=== PATIENT | female | born 1940 | race Caucasian/White ===

== ENCOUNTER 2016-05-24 06:27 | Observation (INO) | payer OTHER ==
[~2016-05-24] VITALS: Ht 167.6 cm; Wt 105.4 kg
--- NOTE | 2016-05-24 06:54 | EMERGENCY ROOM VISIT NOTE ---
History Report prepared by Cory: Huseyin Botello Under the Supervision of: Dr. Angelique Dong M.D. First contact with patient: 06:43 Chief Complaint: CHEST PAIN Stated Complaint: CHEST TIGHTNESS,NUMB AROUND MOUTH,HEADPAIN,SOB History of Present Illness The patient is a 75 year old female with a history of renal failure who presents to the Emergency Room with complaints of resolved chest pain that persisted throughout last night. The pain was described as "feeling like her chest is caving in." The patient called her daughter in the morning at approximately 0430 complaining of chest pain and leg pain/swelling. The patient was not able to sleep last night secondary to pain. The patient also complains of numbness of her lips and tongue. The patient does not have any numbness of her fingertips. The patient has never had a heart attack. She had a catheterization many years ago. The patient has a history of diabetes. She is not a smoker. Source of History: patient, family (daughter) Onset: last night Position: chest Quality: other ("caving in") Timing: resolved Associated Symptoms: + numbness Review of Systems See HPI for pertinent positives & negatives. A total of 10 systems reviewed and were otherwise negative. Past Medical & Surgical Medical Problems: (1) MANUEL (acute kidney injury) (2) Chest pain (3) Diabetes Family History Patient reports no known family medical history. Social History Smoking Status: Never Smoker Marital Status: Occupation Status: retired Current/Historical Medications Scheduled Amlodipine (Norvasc), 10 MG PO DAILY Aspirin (Aspirin Ec), 325 MG PO Q2D Furosemide (Lasix), 80 MG PO BID Hydralazine HCl (Hydralazine HCl), 100 MG PO BID Insulin Aspart (Novolog), 28 UNITS SC TIDM Insulin Glargine (Lantus), 50 UNITS SC HS Levothyroxine Sodium (Synthroid), 100 MCG PO DAILY Losartan Potassium (Cozaar), 100 MG PO DAILY Magnesium Oxide (Magnesium), 400 MG PO DAILY Metoprolol Tartrate (Lopressor) (Lopressor), 100 MG PO DAILY Ranitidine Hcl (Zantac), 150 MG PO BID Allergies Coded Allergies: No Known Allergies (Unverified , 05/24/16) Physical Exam Vital Signs Date Time Temp Pulse Resp B/P Pulse Ox O2 Delivery O2 Flow Rate FiO2 05/24/16 10:07 57 05/24/16 09:05 76 20 188/143 92 Room Air 05/24/16 06:52 78 05/24/16 06:33 36.8 76 16 183/78 95 Room Air Physical Exam Vital signs reviewed. General: Obese, chronically ill-appearing female, in no significant distress. HEENT: No scleral icterus, PERRLA, neck supple. Atraumatic. Cardiovascular: Regular rate and rhythm, no extra sounds. Pulmonary: Clear to auscultation bilaterally, normal work of breathing. Abdomen: Abdomen is obese, soft, and nontender. Musculoskeletal: Atraumatic. Nonpitting peripheral edema to the bilateral lower extremities. Neurologic: Patient awake alert and oriented x 3, full strength in all 4 extremities. Cranial nerves 2 through 12 grossly intact. Skin: Warm, dry, no rash Medical Decision & Procedures ER Provider Diagnostic Interpretation: X-ray results as stated below per my interpretation and radiologist interpretation. Other radiology results as stated below per my review and radiologist interpretation: SINGLE VIEW CHEST CLINICAL HISTORY: Atypical chest pain. Dyspnea. FINDINGS: An AP, portable, upright chest radiograph is obtained. No prior studies are available for comparison at the time of dictation. The examination is degraded by portable technique, large body habitus, apical positioning, and patient rotation. The heart is enlarged and there is atherosclerotic calcification of the thoracic aorta. The pulmonary vasculature is noncongested. Linear atelectasis is present in the left lower lung. No airspace consolidation or large pleural effusion is seen. There is no pneumothorax. The skeletal structures are osteopenic. The bony thorax is grossly intact. IMPRESSION: Cardiomegaly with no acute cardiopulmonary abnormality. Electronically signed by: Franko Leong M.D. 05/24/2016 7:17 AM Dictated Date/Time: 05/24/2016 7:16 AM BILATERAL LOWER EXTREMITY VENOUS DOPPLER CLINICAL HISTORY: Bilateral lower extremity swelling. COMPARISON STUDY: No previous studies for comparison. TECHNIQUE: Sonography of the deep venous system of the bilateral lower extremities was performed. Compression and augmentation were evaluated. FINDINGS: The common femoral, superficial femoral and popliteal veins were compressible. Augmentation was normal. Flow was shown within the deep calf vessels. Note is made of a 6 x 1.5 x 2.8 cm complex right popliteal fluid collection. There is a 7.7 x 2.3 x 3.6 cm complex left popliteal fluid collection. These contain no color flow. IMPRESSION: 1. No evidence of deep venous thrombus within the bilateral lower extremities. 2. Suspected bilateral popliteal cysts, as described above. Electronically signed by: Kane Rodriguez M.D. 05/24/2016 9:45 AM Dictated Date/Time: 05/24/2016 9:44 AM Laboratory Results 05/24/16 07:20 Red Blood Count 4.04, Mean Corpuscular Volume 85.1, Mean Corpuscular Hemoglobin 28.2, Mean Corpuscular Hemoglobin Concent 33.1, Mean Platelet Volume 11.7, Neutrophils (%) (Auto) 58.9, Lymphocytes (%) (Auto) 32.4, Monocytes (%) (Auto) 7.2, Eosinophils (%) (Auto) 1.1, Basophils (%) (Auto) 0.2, Neutrophils # (Auto) 2.63, Lymphocytes # (Auto) 1.45, Monocytes # (Auto) 0.32, Eosinophils # (Auto) 0.05, Basophils # (Auto) 0.01 05/24/16 07:20 Test 05/24/16 07:20 05/24/16 07:28 White Blood Count 4.47 K/uL (4.8-10.8) Red Blood Count 4.04 M/uL (4.2-5.4) Hemoglobin 11.4 g/dL (12.0-16.0) Hematocrit 34.4 % (37-47) Mean Corpuscular Volume 85.1 fL (80-100) Mean Corpuscular Hemoglobin 28.2 pg (25-34) Mean Corpuscular Hemoglobin Concent 33.1 g/dl (32-36) Platelet Count 181 K/uL (130-400) Mean Platelet Volume 11.7 fL (7.4-10.4) Neutrophils (%) (Auto) 58.9 % Lymphocytes (%) (Auto) 32.4 % Monocytes (%) (Auto) 7.2 % Eosinophils (%) (Auto) 1.1 % Basophils (%) (Auto) 0.2 % Neutrophils # (Auto) 2.63 K/uL (1.4-6.5) Lymphocytes # (Auto) 1.45 K/uL (1.2-3.4) Monocytes # (Auto) 0.32 K/uL (0.11-0.59) Eosinophils # (Auto) 0.05 K/uL (0-0.5) Basophils # (Auto) 0.01 K/uL (0-0.2) RDW Standard Deviation 45.7 fL (36.4-46.3) RDW Coefficient of Variation 14.6 % (11.5-14.5) Immature Granulocyte % (Auto) 0.2 % Immature Granulocyte # (Auto) 0.01 K/uL (0.00-0.02) Anion Gap 11.0 mmol/L (3-11) Est Creatinine Clear Calc Drug Dose 20.9 ml/min Estimated GFR () 18.3 Estimated GFR (Non- 15.7 BUN/Creatinine Ratio 10.5 (10-20) Calcium Level 9.2 mg/dl (8.5-10.1) Magnesium Level 2.3 mg/dl (1.8-2.4) Total Bilirubin 0.4 mg/dl (0.2-1) Direct Bilirubin 0.1 mg/dl (0-0.2) Aspartate Amino Transf (AST/SGOT) 12 U/L (15-37) Alanine Aminotransferase (ALT/SGPT) 16 U/L (12-78) Alkaline Phosphatase 86 U/L (45-117) Total Creatine Kinase 66 U/L (26-192) Creatine Kinase MB 0.8 ng/ml (0.5-3.6) Creatine Kinase MB Ratio 1.2 (0-3.0) Total Protein 6.9 gm/dl (6.4-8.2) Albumin 2.9 gm/dl (3.4-5.0) Beta-Hydroxybutyric Acid 2.35 mg/dL (0.2-2.81) Bedside D-Dimer > 450 ng/mlFEU (0-450) Bedside Troponin I 0.000 ng/ml (0-0.045) Laboratory results per my review. Medications Administered Medications (Trade) Dose Ordered Sig/Moiz Route Start Time Stop Time Status Last Admin Dose Admin Aspirin (Aspirin Chew) 324 mg NOW STAT PO 05/24/16 06:59 05/24/16 07:02 DC 05/24/16 07:17 324 MG ECG Indication: chest pain Rate (beats per minute): 78 Rhythm: normal sinus Findings: no acute ischemic change, no ectopy, other (T wave flattening inferiorly.) ED Course 0644: Past medical records reviewed. The patient was evaluated in room A9b. A complete history and physical examination was performed. 0659: Aspirin 324 mg PO. 0850: Checked on the patient. She is stable. 0946: Discussed the case with Vanessa Ridley PA-C, [facility]. The patient will be evaluated. Medical Decision Differential diagnosis: Acute coronary syndrome, pulmonary embolus, aortic dissection, musculoskeletal pain, pneumonia, pleural effusion, pneumothorax This patient was evaluated and appeared to be in no significant distress. IV access was obtained and laboratory work was drawn. The patient was placed on the diagnostic cardiac sonographer and found to be in a normal sinus rhythm. EKG was performed and reveals T-wave flattening in the inferior. Laboratory work reveals a normal troponin, normal cardiac enzymes. Patient was given aspirin to chew. She had no further pain while in the emergency department. Patient was discussed with the hospitalist service who will evaluate the patient for further management. Consults Time Called: [phone] Consulting Physician: Vanessa Ridley PA-C, [facility]. Returned Call: [phone]: Discussed the case with Vanessa Ridley PA-C, [facility]. The patient will be evaluated. Impression Primary Impression: Precordial chest pain Additional Impression: Acute on chronic renal failure Scribe Attestation The scribe's documentation has been prepared under my direction and personally reviewed by me in its entirety. I confirm that the note above accurately reflects all work, treatment, procedures, and medical decision making performed by me. Departure Information Dispostion Being Evaluated By Hospitalist Referrals Carmine Moyer D.O. (PCP) Patient Instructions My [facility] Problem Qualifiers
[2016-05-24] MEDS ORDERED: ASPIRIN 81 MG CHEW PO STA (06:59)
--- NOTE | 2016-05-24 07:18 | DIAGNOSTIC IMAGING REPORT ---
SINGLE VIEW CHEST CLINICAL HISTORY: Atypical chest pain. Dyspnea. FINDINGS: An AP, portable, upright chest radiograph is obtained. No prior studies are available for comparison at the time of dictation. The examination is degraded by portable technique, large body habitus, apical positioning, and patient rotation. The heart is enlarged and there is atherosclerotic calcification of the thoracic aorta. The pulmonary vasculature is noncongested. Linear atelectasis is present in the left lower lung. No airspace consolidation or large pleural effusion is seen. There is no pneumothorax. The skeletal structures are osteopenic. The bony thorax is grossly intact. IMPRESSION: Cardiomegaly with no acute cardiopulmonary abnormality. Electronically signed by: Franko Leong M.D. 05/24/2016 7:17 AM Dictated Date/Time: 05/24/2016 7:16 AM
[2016-05-24 07:34] LABS: BASO % 0.2 %; BASO ABS # 0.01 K/uL (0-0.2); COMPLETE YES; EOS % 1.1 %; HEMATOCRIT 34.4 % (37-47); IG% 0.2 %; LYMPH % 32.4 %; LYMPH ABS # 1.45 K/uL (1.2-3.4); MEAN CELL VOLUME 85.1 fL (80-100); MEAN CORPUSCULAR HEMOGLOBIN 28.2 pg (25-34); MEAN CORPUSCULAR HGB CONC 33.1 g/dl (32-36); MEAN PLATELET VOLUME 11.7 fL (7.4-10.4); MONO % 7.2 %; NEUT % 58.9 %; PLATELET COUNT 181 K/uL (130-400); RED BLOOD COUNT 4.04 M/uL (4.2-5.4); WHITE BLOOD COUNT 4.47 K/uL (4.8-10.8)
[2016-05-24] MEDS ORDERED: INSDGI SC (07:46)
[2016-05-24] MEDS ORDERED: MAGN1TAB41 PO (07:46)
[2016-05-24] MEDS ORDERED: LOSA1TAB38 PO (07:46)
[2016-05-24] MEDS ORDERED: FURO80TA63 PO (07:46)
[2016-05-24] MEDS ORDERED: NVLG SC (07:46)
[2016-05-24] MEDS ORDERED: HYDR100T3 PO ×2 (07:46→10:44)
[2016-05-24] MEDS ORDERED: METO100T14 PO (07:46)
[2016-05-24] MEDS ORDERED: AMLO2.5T PO (07:46)
[2016-05-24] MEDS ORDERED: LEVO100T PO (07:46)
[2016-05-24 07:53] LABS: BUN/CREATININE RATIO 10.5 (10-20); CALCIUM 9.2 mg/dl (8.5-10.1); CREATININE 2.8 mg/dl (0.60-1.20); MAGNESIUM 2.3 mg/dl (1.8-2.4); POTASSIUM 3.6 mmol/L (3.5-5.1)
[2016-05-24 08:03] LABS: BETA-HYDROXYBUTYRATE 2.35 mg/dL (0.2-2.81); CKMB/CK RATIO 1.2 (0-3.0)
--- NOTE | 2016-05-24 09:46 | DIAGNOSTIC IMAGING REPORT ---
BILATERAL LOWER EXTREMITY VENOUS DOPPLER CLINICAL HISTORY: Bilateral lower extremity swelling. COMPARISON STUDY: No previous studies for comparison. TECHNIQUE: Sonography of the deep venous system of the bilateral lower extremities was performed. Compression and augmentation were evaluated. FINDINGS: The common femoral, superficial femoral and popliteal veins were compressible. Augmentation was normal. Flow was shown within the deep calf vessels. Note is made of a 6 x 1.5 x 2.8 cm complex right popliteal fluid collection. There is a 7.7 x 2.3 x 3.6 cm complex left popliteal fluid collection. These contain no color flow. IMPRESSION: 1. No evidence of deep venous thrombus within the bilateral lower extremities. 2. Suspected bilateral popliteal cysts, as described above. Electronically signed by: Kane Rodriguez M.D. 05/24/2016 9:45 AM Dictated Date/Time: 05/24/2016 9:44 AM
[2016-05-24] MEDS ORDERED: ASPI325T39 PO (10:44)
[2016-05-24] MEDS ORDERED: AMLO-114 PO (10:44)
[2016-05-24] MEDS ORDERED: RANI150T3 PO (10:44)
[2016-05-24] MEDS ORDERED: GLUCOSE 10 TABS/TUBE PO PRN (10:45)
[2016-05-24] MEDS ORDERED: GLUCAGON FOR INJ 1 MG VIAL SQ PRN (10:45)
[2016-05-24] MEDS ORDERED: ACETAMINOPHEN 325 MG TAB PO PRN (10:45)
[2016-05-24] MEDS ORDERED: DEXTROSE 50% 50 ML SYR IV PRN (10:45)
[2016-05-24] MEDS ORDERED: GLUCOSE 40% GEL 15 GM TUBE PO PRN (10:45)
[2016-05-24] MEDS ORDERED: NITROGLYCERIN 0.4 MG SL PER TAB CHARGE SL PRN (10:45)
[2016-05-24] MEDS ORDERED: ONDANSETRON INJ 2 MG/ML 2 ML VIAL IV PRN (10:45)
--- NOTE | 2016-05-24 12:22 | History and Physical ---
History & Physical Date & Time of Service: May 24, 2016 at 12:04 Chief Complaint: Chest Tightness,Numb Around Mouth,Head Pain,Sob Primary Care Physician: Carmine Moyer D.O. History of Present Illness Source: patient This is a 75 y/o female with PMHx of CKD stage 4, Diastolic CHF on lasix, insulin-dependent DM 2, Hypothyroidism, HTN, Dyslipidemia and other problems as outlined below who presents to the ED c/o chest pain that began last night. Pt reports that last night she awoke from sleep with a dull central chest "heaviness" that did not radiate anywhere. The pain lasted approximately 2 hours before resolving completely. She does not know if her sxs were made worse with exertion. Sxs were assoc with exertional SOB and some lip numbness. She also noticed worsening LE edema bilaterally. She has never had chest pain like that before. Pt denies fever/chills, diaphoresis, palpitations, wheezing, abd pain, N/V, bladder issues, calf pain, slurred speech, facial droop, unilateral weakness, difficulty with swallowing or ambulation, lightheadedness/dizziness. In the ED, BP is elevated on arrival. Creat 2.8. d-dimer >450. Trop neg and EKG no acute ischemic changes. CXR no consolidation. Bilat LE US negative for DVT. Pt is currently chest pain free and will be admitted for further evaluation and treatment. Past Medical/Surgical History Medical Problems: (1) CKD (chronic kidney disease) stage 4, GFR 15-29 ml/min Status: Chronic (2) Diabetes mellitus, type II Status: Chronic (3) Diastolic heart failure Status: Chronic (4) Dyslipidemia Status: Chronic (5) GERD (gastroesophageal reflux disease) Status: Chronic (6) HTN (hypertension) Status: Chronic (7) Hypothyroidism Status: Chronic Surgical Problems: (1) H/O cataract removal with insertion of prosthetic lens Status: Resolved (2) H/O hernia repair Permanent Comment: x3 Status: Resolved (3) History of total hysterectomy Status: Resolved (4) History of tubal ligation Status: Resolved Family History Patient reports no known family medical history. Social History Smoking Status: Never Smoker Alcohol Use: none Drug Use: none Marital Status: single Housing status: lives alone Occupational Status: retired Allergies Coded Allergies: No Known Allergies (Unverified , 05/24/16) Home Medications Scheduled Amlodipine (Norvasc), 10 MG PO DAILY Aspirin (Aspirin Ec), 325 MG PO Q2D Furosemide (Lasix), 80 MG PO BID Hydralazine HCl (Hydralazine HCl), 100 MG PO BID Insulin Aspart (Novolog), 28 UNITS SC TIDM Insulin Glargine (Lantus), 50 UNITS SC HS Levothyroxine Sodium (Synthroid), 100 MCG PO DAILY Losartan Potassium (Cozaar), 100 MG PO DAILY Magnesium Oxide (Magnesium), 400 MG PO DAILY Metoprolol Tartrate (Lopressor) (Lopressor), 100 MG PO DAILY Ranitidine Hcl (Zantac), 150 MG PO BID Review of Systems Constitutional: No chills, No fatigue, No fever, No sweats, No weakness Eyes: No worsening of vision ENT: No hearing loss Respiratory: + cough, + dyspnea on exertion, + shortness of breath, No dyspnea at rest, No sputum, No wheezing Cardiovascular: + chest pain, + edema, No claudication, No palpitations Abdomen: + constipation, No GI bleeding, No diarrhea, No nausea, No pain, No vomiting Musculoskeletal: + swelling, No calf pain Genitourinary - Female: No dysuria Neurologic: No weakness Psychiatric: No depression symptoms Endocrine: No fatigue Hematologic / Lymphatic: No abnormal bleeding/bruising Integumentary: No new/changing skin lesions Physical Exam Vital Signs Date Time Temp Pulse Resp B/P Pulse Ox O2 Delivery O2 Flow Rate FiO2 05/24/16 11:12 53 16 151/65 05/24/16 10:07 53 18 149/63 05/24/16 10:07 57 05/24/16 09:05 76 20 188/143 92 Room Air 05/24/16 06:52 78 05/24/16 06:33 36.8 76 16 183/78 95 Room Air General Appearance: WD/WN, no apparent distress, + obese, + pertinent finding ( Pt is sitting up in bed with daughters at bedside ) Head: normocephalic, atraumatic Eyes: normal inspection ENT: hearing grossly normal Neck: supple Respiratory/Chest: chest non-tender, no respiratory distress, + pertinent finding (rhonchi and mild wheezing) Cardiovascular: regular rate, rhythm, no edema, no murmur Abdomen/GI: normal bowel sounds, non tender, soft Back: normal inspection Extremities/Musculoskelatal: normal inspection, no calf tenderness, + swelling (1+ swelling bilat) Neurologic/Psych: pocket cutter II-XII nml as tested, no motor/sensory deficits, alert, normal mood/affect, oriented x 3 Skin: normal color, warm/dry Diagnostics Laboratory Results Results Past 24 Hours Test 05/24/16 07:20 05/24/16 07:28 Range/Units White Blood Count 4.47 4.8-10.8 K/uL Red Blood Count 4.04 4.2-5.4 M/uL Hemoglobin 11.4 12.0-16.0 g/dL Hematocrit 34.4 37-47 % Mean Corpuscular Volume 85.1 80-100 fL Mean Corpuscular Hemoglobin 28.2 25-34 pg Mean Corpuscular Hemoglobin Concent 33.1 32-36 g/dl Platelet Count 181 130-400 K/uL Mean Platelet Volume 11.7 7.4-10.4 fL Neutrophils (%) (Auto) 58.9 % Lymphocytes (%) (Auto) 32.4 % Monocytes (%) (Auto) 7.2 % Eosinophils (%) (Auto) 1.1 % Basophils (%) (Auto) 0.2 % Neutrophils # (Auto) 2.63 1.4-6.5 K/uL Lymphocytes # (Auto) 1.45 1.2-3.4 K/uL Monocytes # (Auto) 0.32 0.11-0.59 K/uL Eosinophils # (Auto) 0.05 0-0.5 K/uL Basophils # (Auto) 0.01 0-0.2 K/uL RDW Standard Deviation 45.7 36.4-46.3 fL RDW Coefficient of Variation 14.6 11.5-14.5 % Immature Granulocyte % (Auto) 0.2 % Immature Granulocyte # (Auto) 0.01 0.00-0.02 K/uL Sodium Level 134 136-145 mmol/L Potassium Level 3.6 3.5-5.1 mmol/L Chloride Level 97 98-107 mmol/L Carbon Dioxide Level 26 21-32 mmol/L Anion Gap 11.0 3-11 mmol/L Blood Urea Nitrogen 29 7-18 mg/dl Creatinine 2.80 0.60-1.20 mg/dl Est Creatinine Clear Calc Drug Dose 20.9 ml/min Estimated GFR () 18.3 Estimated GFR (Non- 15.7 BUN/Creatinine Ratio 10.5 10-20 Random Glucose 327 70-99 mg/dl Calcium Level 9.2 8.5-10.1 mg/dl Magnesium Level 2.3 1.8-2.4 mg/dl Total Bilirubin 0.4 0.2-1 mg/dl Direct Bilirubin 0.1 0-0.2 mg/dl Aspartate Amino Transf (AST/SGOT) 12 15-37 U/L Alanine Aminotransferase (ALT/SGPT) 16 12-78 U/L Alkaline Phosphatase 86 45-117 U/L Total Creatine Kinase 66 26-192 U/L Creatine Kinase MB 0.8 0.5-3.6 ng/ml Creatine Kinase MB Ratio 1.2 0-3.0 Total Protein 6.9 6.4-8.2 gm/dl Albumin 2.9 3.4-5.0 gm/dl Beta-Hydroxybutyric Acid 2.35 0.2-2.81 mg/dL Bedside D-Dimer > 450 0-450 ng/mlFEU Bedside Troponin I 0.000 0-0.045 ng/ml Diagnostic Radiology BILAT LE US IMPRESSION: 1. No evidence of deep venous thrombus within the bilateral lower extremities. 2. Suspected bilateral popliteal cysts, as described above CXR IMPRESSION: Cardiomegaly with no acute cardiopulmonary abnormality. EKG EKG: NSR at 78 bpm with mod LVH and no acute ischemic changes noted; Impression Assessment and Plan CHEST PAIN R/O ACS pt presented with chest pain assoc with exertional SOB; no prior h/o cardiac problems -admit observation status to telemetry -RFs include DM2, HTN, Dyslipidemia -EKG no acute ischemic changes;repeat EKG PRN chest pain and in AM -Initial troponin is negative; continue to monitor with serial cardiac enzymes q6h -obtain echo to r/o cardiac wall motion abnormalities -cont ASA and BB -consult cardiology, Dr. Vega-pending input -pt is currently chest pain free -continue to monitor BILAT LE SWELLING/ELEVATED D-DIMER -d-dimer >450 -bilat LE US negative for DVT -obtain VQ scan to r/o PE MANUEL ON CKD STAGE 4 -creatinine currently 2.8 (bl=2.1-2.3) -hold lasix, hydralazine and losartan -continue to monitor with daily prp and avoid nephrotoxic agents when able CONSTIPATION -last BM 2 days ago -start bowel regimen H/O DIASTOLIC CHF -1+ lower extremity edema; CXR no effusions -hold Lasix and Hydralazine for MANUEL -start BB -continue to monitor with I&Os and daily weights INSULIN-DEPENDENT DM 2 -recent A1C 8.5; repeat in AM -hold NovoLog -cont Lantus -monitor BSG AC HS HYPOTHYROIDISM -cont levothyroxine GERD -cont ranitidine HTN -BP now stable -cont Norvasc and metoprolol -hold losartan and hydralazine due to MANUEL -monitor DYSLIPIDEMIA -cont statin DVT PROPHYLAXIS -subq heparin CODE STATUS -FULL CODE per discussion with patient upon admission DISPO Observation status until full workup is complete. Pt seen in collaboration with Dr. Carreon. Please see her addendum for further details. Thanks! ATTENDING ADDENDUM Record reviewed. Patient interviewed and examined. Care coordinated with Vanessa Abdullahi PA-C. Please refer to her documentation for patient's history. Pt states she had no chest pain or shortness of breath to me. She has had a non -productive cough for 3 days without fevers, chills, n/v/d. She reports a fall in her kitchen on 05/06 and has some residual bruising on her R hip and L knee that is healing well. She reports she came to the ER because her legs were more swollen than normal, which was noticed acutely today. The patient is a very poor historian and has changed her story with different providers. Another issue was lip numbness, which was actually dry lips when I probed further. This varying story attributed to the current workup to include the indeterminate VQ scan to rule out PE which was thought to be low risk with no tachycardia or tachypnea (however, with reports to earlier providers about CP and SOB this was difficult to discern). Of concern, however, is an objective 30 lb weight loss from prior office visit in Nov 2015. She denies any diets and reports early satiety. She cannot tell me when her last mammogram or colonoscopy has been performed. She mentions some yellowish tinge to her stools , as well. Will order a CT c/a/p in the setting of this unexplained weight loss. Will also add a flu PCR with recent cough. Otherwise agree with above assessment and plan. Abbi Carreon, DO Hospitalist VTE Prophylaxis VTE Risk Assessment Done? Y/N: Yes Risk Level: Moderate
[2016-05-24] MEDS ORDERED: IV FLUIDS COMPLETED PRN (13:45)
[2016-05-24] MEDS ORDERED: HEPARIN SOD 5000 UNIT/0.5 ML CARP SQ SCH (14:00)
--- NOTE | 2016-05-24 14:08 | DIAGNOSTIC IMAGING REPORT ---
NUCLEAR MEDICINE VENTILATION/PERFUSION SCAN CLINICAL HISTORY: Elevated d-dimer, chest pain and shortness of breath. COMPARISON: Chest radiograph May 24, 2016. TECHNIQUE: For the ventilation portion of this exam, 32 mCi of DTPA was inhaled at 1:05 PM on May 24, 2016. Immediately following inhalation, imaging of the chest was carried out in the anterior, posterior, left lateral, right lateral, LPO, RPO, OJ and VIVEROS projections. For the perfusion portion of exam, 6 mCi of technetium 99m MAA was injected IV at 1:30 PM on May 24, 2016. Immediately following injection, imaging of the chest was carried out in the same projections. FINDINGS: There is extensive central radiotracer deposition on the ventilation portion of the study which suggest chronic lung disease. This decreases the accuracy of this examination. Asymmetric decreased perfusion to the left lung is noted. Comparison with the ventilation portion of this study is difficult given central radiotracer deposition. No segmental defects are identified. IMPRESSION: Technically compromised exam, as described above. Central radiotracer deposition suggests chronic interstitial lung disease. Asymmetric diminished perfusion to the left lung with no segmental defects. This study is considered intermediate probability/indeterminate for pulmonary embolus. If persistent clinical suspicion for pulmonary embolus, a CT PE protocol might be considered. Electronically signed by: Kane Rodriguez M.D. 05/24/2016 2:06 PM Dictated Date/Time: 05/24/2016 2:00 PM
[2016-05-24 14:24] VITALS: BP_SYST 187; BP_SYST 202; BP_DIAS 75; BP_DIAS 78; PULSE 60; TEMP 36.7; O2SAT 95
[2016-05-24 14:43] VITALS: O2SAT 95; BMI 37.4
[2016-05-24 15:08] LABS: PROTHROMBIN TIME (PATIENT) 10.2 SECONDS (9.0-12.0)
[2016-05-24 16:00] VITALS: O2SAT 95
[2016-05-24] MEDS ORDERED: HEPARIN 25,000 UNIT/500ML D5W 500 ML IV PRN (17:00)
[2016-05-24] MEDS: INSULIN ASPART 100 UNITS/ML 3 ML PEN SC SCH ×2 (17:21→21:00)
--- NOTE | 2016-05-24 18:41 | DIAGNOSTIC IMAGING REPORT ---
CHEST CT WITHOUT CONTRAST CT DOSE: 1462.58 mGy.cm HISTORY: Weight loss unexplained weight loss, early satiety TECHNIQUE: Multiaxial CT images of the chest were performed without contrast. COMPARISON: None. FINDINGS: The lungs are clear. The mediastinal vascular structures are within normal limits. No mediastinal or hilar lymphadenopathy. No pleural effusion or pneumothorax. Limited views of the upper abdomen demonstrate a normal liver and spleen. IMPRESSION: No acute process. Electronically signed by: Teto Stiles M.D. 05/24/2016 6:40 PM Dictated Date/Time: 05/24/2016 6:39 PM
--- NOTE | 2016-05-24 18:44 | DIAGNOSTIC IMAGING REPORT ---
ABDOMEN AND PELVIS CT WITHOUT CONTRAST CT DOSE: HISTORY: Weight loss early satiety, 30 lb unexplained weight loss TECHNIQUE: Multiaxial CT images of the abdomen and pelvis were performed without contrast. COMPARISON STUDY: None. FINDINGS: Minimal dependent basilar atelectasis. Liver spleen and pancreas are unremarkable. Pancreas demonstrates fatty replacement. Color is negative for distention. Bowel pattern is nonobstructive. Mild age-related cortical scarring of the kidneys present. Bowel pattern is nonobstructive. There are findings of mild chronic sigmoid diverticulosis. There is no evidence for acute diverticulitis. IMPRESSION: 1. Mild chronic sigmoid diverticulosis. 2. No evidence for acute diverticulitis. 3. Otherwise negative study abdomen and pelvis Electronically signed by: Teto Stiles M.D. 05/24/2016 6:42 PM Dictated Date/Time: 05/24/2016 6:40 PM
[2016-05-24 20:00] VITALS: O2SAT 95
[2016-05-24 20:02] LABS: INFLUENZA B PCR Neg for Influ B (NEG)
[2016-05-24 20:04] LABS: INFLUENZA A PCR POS for Influ A (NEG)
[2016-05-24 20:22] VITALS: BP 166/78; PULSE 51; TEMP 36.9; O2SAT 93
[2016-05-24] MEDS ORDERED: INSULIN GLARGINE SOLOSTAR 100 UNITS/ML 3 ML PEN SC SCH (21:00)
--- NOTE | 2016-05-24 21:20 | Medical Consult ---
Consultation Date of Consultation: May 24, 2016. Attending Physician: Jamia Beltran.Raquel Reason for Consultation: Possible pulmonary embolus on V/Q scan History of Present Illness Ms. Inman is a 75 y/o female new to the consulting hematology service with PMH of CKD stage 4, diastolic CHF, insulin-dependent DM 2, hypothyroidism, HTN. Patient seems to be somewhat of unreliable historian. She presented to the ED last evening citing significant exacerbation of edema of lower extremities, affecting to the thigh bilaterally. In the acting section chief hours, she had family take her to the ER for this edema, but she also had chest "discomfort" for an unspecified amount of time as well as left foot numbness. She reports the chest symptom resolved by the time she came to ED. In the past few weeks, the patient reports she was given Rx for Levaquin and steroid for a cough. She states she only took the steroid initially and more recently tried the antibiotic. She has not had pleuritic chest pain or dyspnea. She reports losing 30 lbs unintentionally in the past 3 months. She also has been having issues with constipation over the last few months, trying different laxatives with some improvement. Her last BM was 3 days ago, soft with "mucus." She has not had hematochezia; she does state when she took prune juice her stool was darker. She has early satiety but denies nausea. She has lower "gas pain" intermittently. She denies personal or FH of VTE or blood disorders. She is , no miscarriages. She has not had any recent surgery or been immobile. 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 Family History Patient reports no known family medical history. Social History Smoking Status: Never Smoker Alcohol Use: none Drug Use: none Marital Status: single Occupation Status: retired Allergies Coded Allergies: No Known Allergies (Unverified , 05/24/16) Current Inpatient Medications Current Inpatient Medications Medications (Trade) Dose Ordered Sig/Moiz Route Start Time Stop Time Status Last Admin Dose Admin Acetaminophen (Tylenol Tab) 650 mg Q4H PRN PO 05/24/16 10:45 06/23/16 10:44 Ondansetron HCl (Zofran Inj) 4 mg Q6H PRN IV 05/24/16 10:45 06/23/16 10:44 Nitroglycerin (Nitrostat Tab) 0.4 mg UD PRN SL 05/24/16 10:45 06/23/16 10:44 Insulin Aspart (novoLOG ASPART) SLIDING SCALE If C... ACHS SC 05/24/16 16:30 06/23/16 16:29 Glucose (Glucose 40% Gel) 15-30 GRAMS 15 GRAMS... UD PRN PO 05/24/16 10:45 06/23/16 10:44 Glucose (Glucose Chew Tab) 4-8 Tablets 4 Tabl... UD PRN PO 05/24/16 10:45 06/23/16 10:44 Dextrose (Dextrose 50% 50ML Syringe) 25-50ML OF 50% DW IV FOR... UD PRN IV 05/24/16 10:45 06/23/16 10:44 Glucagon (Glucagon Inj) 1 mg UD PRN SQ 05/24/16 10:45 06/23/16 10:44 Amlodipine Besylate (Norvasc Tab) 10 mg DAILY PO 05/25/16 09:00 06/24/16 08:59 Aspirin (Ecotrin Tab) 325 mg Q2D PO 05/26/16 09:00 06/25/16 08:59 Insulin Glargine (Lantus Solostar Pen) 50 unit HS SC 05/24/16 21:00 06/23/16 20:59 Levothyroxine Sodium (Synthroid Tab) 100 mcg DAILYBB PO 05/25/16 06:30 06/24/16 06:29 Metoprolol Tartrate (Lopressor Tab) 100 mg DAILY PO 05/25/16 09:00 06/24/16 08:59 Ranitidine HCl (zANTac TAB) 150 mg BID PO 05/24/16 21:00 06/23/16 20:59 Magnesium Oxide (Mag-Ox Tab) 400 mg DAILY PO 05/25/16 09:00 06/24/16 08:59 Docusate Sodium (coLACE CAP) 100 mg BID PO 05/24/16 21:00 06/23/16 20:59 Polyethylene (Miralax Powder Packet) 17 gm DAILY PO 05/25/16 09:00 06/24/16 08:59 Miscellaneous (Iv Fluids Completed) 1 ea PRN PRN N/A 05/24/16 13:45 05/24/17 18:00 Heparin Sodium/ Dextrose 1 ea Q30M N/A 05/24/16 15:30 06/23/16 15:29 Review of Systems Constitutional: + weight loss, No chills, No fever Respiratory: + cough, + wheezing, No shortness of breath Cardiovascular: + edema, No chest pain Abdomen: + constipation, + pain, No GI bleeding, No nausea, No vomiting Neurologic: + balance problems, + numbness/tingling (see HPI) Physical Exam Date Time Temp Pulse Resp B/P Pulse Ox O2 Delivery O2 Flow Rate FiO2 05/24/16 14:43 95 Room Air 05/24/16 14:24 36.7 60 18 202/75 95 Room Air 187/78 05/24/16 12:58 71 16 145/78 94 05/24/16 11:12 53 16 151/65 05/24/16 10:07 53 18 149/63 05/24/16 10:07 57 05/24/16 09:05 76 20 188/143 92 Room Air 05/24/16 06:52 78 05/24/16 06:33 36.8 76 16 183/78 95 Room Air General Appearance: WD/WN, no apparent distress ENT: hearing grossly normal Respiratory/Chest: no respiratory distress, no accessory muscle use, + rhonchi (anterior right chest), + wheezing (anterior right chest) Cardiovascular: regular rate, rhythm Abdomen/GI: normal bowel sounds, non tender, + distended (moderate) Extremities/Musculoskelatal: + swelling (of lower extremities to thigh, non pitting, diffusely tender) Neurologic/Psych: no motor/sensory deficits, alert, oriented x 3 Skin: normal color, warm/dry Laboratory Results 05/24/16 07:20 Red Blood Count 4.04, Mean Corpuscular Volume 85.1, Mean Corpuscular Hemoglobin 28.2, Mean Corpuscular Hemoglobin Concent 33.1, Mean Platelet Volume 11.7, Neutrophils (%) (Auto) 58.9, Lymphocytes (%) (Auto) 32.4, Monocytes (%) (Auto) 7.2, Eosinophils (%) (Auto) 1.1, Basophils (%) (Auto) 0.2, Neutrophils # (Auto) 2.63, Lymphocytes # (Auto) 1.45, Monocytes # (Auto) 0.32, Eosinophils # (Auto) 0.05, Basophils # (Auto) 0.01 05/24/16 07:20 Test 05/24/16 07:20 05/24/16 07:28 05/24/16 12:05 05/24/16 13:30 White Blood Count 4.47 K/uL (4.8-10.8) Red Blood Count 4.04 M/uL (4.2-5.4) Hemoglobin 11.4 g/dL (12.0-16.0) Hematocrit 34.4 % (37-47) Mean Corpuscular Volume 85.1 fL (80-100) Mean Corpuscular Hemoglobin 28.2 pg (25-34) Mean Corpuscular Hemoglobin Concent 33.1 g/dl (32-36) Platelet Count 181 K/uL (130-400) Mean Platelet Volume 11.7 fL (7.4-10.4) Neutrophils (%) (Auto) 58.9 % Lymphocytes (%) (Auto) 32.4 % Monocytes (%) (Auto) 7.2 % Eosinophils (%) (Auto) 1.1 % Basophils (%) (Auto) 0.2 % Neutrophils # (Auto) 2.63 K/uL (1.4-6.5) Lymphocytes # (Auto) 1.45 K/uL (1.2-3.4) Monocytes # (Auto) 0.32 K/uL (0.11-0.59) Eosinophils # (Auto) 0.05 K/uL (0-0.5) Basophils # (Auto) 0.01 K/uL (0-0.2) RDW Standard Deviation 45.7 fL (36.4-46.3) RDW Coefficient of Variation 14.6 % (11.5-14.5) Immature Granulocyte % (Auto) 0.2 % Immature Granulocyte # (Auto) 0.01 K/uL (0.00-0.02) Prothrombin Time 10.2 SECONDS (9.0-12.0) Prothromb Time International Ratio 1.0 (0.9-1.1) Anion Gap 11.0 mmol/L (3-11) Est Creatinine Clear Calc Drug Dose 20.9 ml/min Estimated GFR () 18.3 Estimated GFR (Non- 15.7 BUN/Creatinine Ratio 10.5 (10-20) Calcium Level 9.2 mg/dl (8.5-10.1) Magnesium Level 2.3 mg/dl (1.8-2.4) Total Bilirubin 0.4 mg/dl (0.2-1) Direct Bilirubin 0.1 mg/dl (0-0.2) Aspartate Amino Transf (AST/SGOT) 12 U/L (15-37) Alanine Aminotransferase (ALT/SGPT) 16 U/L (12-78) Alkaline Phosphatase 86 U/L (45-117) Total Creatine Kinase 66 U/L (26-192) Creatine Kinase MB 0.8 ng/ml (0.5-3.6) Creatine Kinase MB Ratio 1.2 (0-3.0) (0-3.0) Total Protein 6.9 gm/dl (6.4-8.2) Albumin 2.9 gm/dl (3.4-5.0) Beta-Hydroxybutyric Acid 2.35 mg/dL (0.2-2.81) Bedside D-Dimer > 450 ng/mlFEU (0-450) Bedside Troponin I 0.000 ng/ml (0-0.045) Bedside Glucose 306 mg/dl (70-90) Test 05/24/16 14:41 Creatine Kinase MB 0.7 ng/ml (0.5-3.6) Troponin I < 0.015 ng/ml (0-0.045) Ventilation-perfusion scan from 05/24/2016: Extensive central radiotracer deposition on the ventilation portion of the study which suggests chronic lung disease. This decreases the accuracy of the examination. Asymmetric decreased profusion to the left lung. Comparison with the ventilation the difficult given the central radiotracer deposition. No segmental defects. This studies considered intermediate probability/indeterminate for pulmonary embolus. Bilateral Doppler of lower extremity from 05/24/2016: No evidence of deep venous thrombus within the bilateral lower extremities. Suspected bilateral popliteal cyst. Chest x-ray from 05/24/2016: Cardiomegaly with no acute cardiopulmonary abnormality. Assessment & Plan (1) Abnormal finding on lung imaging Assessment & Plan: Patient had V/Q scan in light of D dimer elevated > 450 on admission to hospital with patient's vague history of chest discomfort for unspecified amount of time just prior to admission; this has since resolved. Cardiac work up since admission has been negative. V/Q scan with extensive central radiotracer deposition on the ventilation portion of the study which suggests chronic lung disease, which decreased the accuracy of the examination. Asymmetric decreased perfusion to the left lung. Comparison with the ventilation difficult given the central radiotracer deposition. No segmental defects. This study was considered intermediate probability/indeterminate for pulmonary embolus. Patient was not tachycardic and afebrile on admission, O2 sat on arrival at 95% on room air, most readings around 95%, a couple readings noted at 92/93%. Had Doppler examination of LEs, negative for DVT. No prior personal or FH of VTE, no major risk factors found in history. Hospitalist team has started patient on Heparin gtt for DVT prophylaxis. Other possibility for her chest symptoms she experienced prior to admission could be related to bronchitis patient has been receiving treatment with steroid and Levaquin for the past few weeks (history not clear on when these were started). Further review of the chart after consult, patient has test positive for influenza type A. Will discuss with Dr. Beltran about the question of concern, anticoagulation with an intermediate/indeterminate V/Q scan. History and physical exam seem less c/w acute PE. Dr. Beltran to see patient tomorrow, 05/25/16, issue addendum to this consult with further recommendations. (2) CKD (chronic kidney disease) stage 4, GFR 15-29 ml/min Status: Chronic Assessment & Plan: Unable to attain CTA due to CKD stage 4. Creatinine (3) Unintentional weight loss Assessment & Plan: 30 lb weight loss in 3 months in the setting of issues with constipation, early satiety. Noncontrast CT scans obtained later today nonrevealing for cause of weight loss, specifically in regards to heme/onc, no findings concerning for malignancy. Consider GI consult for patient's symptoms. I performed history and physical examination of the patient. I have discussed the patient's case, impression and plan with Tia Mane PA-C. Her note reflects my findings and plan.Also spoke with the hospitalist Dr. Beltran regarding her case. Overall does not appear to be a case of pulmonary embolism, I would not recommend anticoagulant treatment for that. Bhupendra Beltran MD Hematology/Oncology
[2016-05-24] MEDS: DOCUSATE SODIUM 100 MG CAP PO SCH (21:39)
[2016-05-24] MEDS: RANITIDINE HCL 150 MG TAB PO SCH (21:40)
[2016-05-25] VITALS (11 sets, daily range): BP systolic 144–168; BP diastolic 58–76; PULSE 48–63; TEMP 36.4–37; O2SAT 91–96; Ht 167.6 cm; Wt 105.4 kg
[2016-05-25 00:21] LABS: PARTIAL THROMBOPLASTIN RATIO 2.5
[2016-05-25 06:19] LABS: HEMATOCRIT 32.6 % (37-47); MEAN CELL VOLUME 84.5 fL (80-100); MEAN CORPUSCULAR HEMOGLOBIN 27.7 pg (25-34); MEAN CORPUSCULAR HGB CONC 32.8 g/dl (32-36); MEAN PLATELET VOLUME 11.8 fL (7.4-10.4); PLATELET COUNT 214 K/uL (130-400); RED BLOOD COUNT 3.86 M/uL (4.2-5.4); WHITE BLOOD COUNT 5.14 K/uL (4.8-10.8)
[2016-05-25 06:38] LABS: ESTIMATED AVERAGE GLUCOSE 232 mg/dl; HA1C FLAG Normal (Normal)
[2016-05-25 06:45] LABS: BUN/CREATININE RATIO 11.1 (10-20); CREATININE 2.5 mg/dl (0.60-1.20); POTASSIUM 3.1 mmol/L (3.5-5.1)
[2016-05-25] MEDS: LEVOTHYROXINE 100 MCG TAB PO SCH (06:47)
[2016-05-25 08:42] LABS: PARTIAL THROMBOPLASTIN RATIO 2.8
[2016-05-25] MEDS: INSULIN ASPART 100 UNITS/ML 3 ML PEN SC SCH ×4 (09:09→21:11)
[2016-05-25] MEDS: DOCUSATE SODIUM 100 MG CAP PO SCH ×2 (09:10→21:05)
[2016-05-25] MEDS: MAGNESIUM OXIDE 400 MG TAB PO SCH (09:11)
[2016-05-25] MEDS: AMLODIPINE BESYLATE 5 MG TAB PO SCH (09:12)
[2016-05-25] MEDS: POLYETHYLENE (MIRALAX) 17 GM PACK PO SCH (09:12)
[2016-05-25] MEDS: RANITIDINE HCL 150 MG TAB PO SCH ×2 (09:13→21:05)
[2016-05-25] MEDS: METOPROLOL TARTRATE 100 MG TAB PO SCH (09:24)
--- NOTE | 2016-05-25 10:13 | CARDIOLOGY CONSULTATION ---
DATE OF CONSULTATION: 05/25/2016 REQUESTING PHYSICIAN: Narciso Nails. REASON FOR CONSULTATION: Shortness of breath. HISTORY: This is a 75-year-old female who has stage IV renal disease and is followed by nephrology in [place]. She is also a type 2 diabetic and has a history of diastolic heart failure for which she takes Lasix. She was recently diagnosed with influenza and has been very ill at home. She has been coughing with congestion and was recently started on steroids as well as Levaquin as an outpatient. She noticed that her legs were swelling and decided to come into the Emergency Department. She has been given IV diuretics and overnight her edema has for the most part resolved. She flatly denies chest pain. Her EKG on admission shows no acute changes and her cardiac markers have been negative x2. Overall, she states she is feeling better. ALLERGIES: No known medical allergies. PAST MEDICAL HISTORY: As outlined above, the patient has had a history for several years of stage IV chronic kidney disease. She is a type 2 diabetic. She does have a history of diastolic heart failure and hypertension. She is treated for hypothyroidism. SOCIAL HISTORY: She is a lifelong nonsmoker. She lives independently. FAMILY MEDICAL HISTORY: Noncontributory. REVIEW OF SYSTEMS: A 10-point review of systems is negative except for the history of chief complaint. PHYSICAL EXAMINATION: GENERAL: She is alert and oriented. VITAL SIGNS: Blood pressure is 150/60, pulse is regular at 53, she is afebrile. HEENT: She is normocephalic. Pupils are equal and reactive to light. Extraocular muscles are intact bilaterally. NECK: The neck veins are flat. Carotids have good upstrokes bilaterally without bruits. Thyroid is nonpalpable. RESPIRATORY: Breath sounds equal bilaterally and clear to auscultation. CARDIOVASCULAR: Heart has a regular rhythm. Normal S1, S2. No S3 or S4. No cardiac rubs or murmurs. GASTROINTESTINAL: Abdomen is soft and nontender without organomegaly. EXTREMITIES: Free of edema, digit clubbing, or cyanosis. NEUROLOGIC: Grossly intact. SKIN: Warm to touch. LYMPH NODES: Negative to palpation. LABORATORY DATA: Hemoglobin is 11.4, WBC count is 4.47. Creatinine is 2.8. Cardiac troponins are negative. Bilateral lower extremity ultrasounds were negative for DVT and she had an indeterminate V/Q scan. IMPRESSION: 1. Influenza. 2. Chronic kidney disease with volume overload. 3. Diabetes mellitus. 4. Chronic diastolic heart failure. 5. Hypertension. RECOMMENDATIONS: I will review the patient's echocardiogram when it is complete, but at this time I do not believe any additional cardiac testing is indicated. I think that this is an elderly patient with chronic kidney disease, diabetes and hypertension with diastolic dysfunction, who has influenza and has decompensated. We will continue to follow along with you during her hospital stay. Thank you.
--- NOTE | 2016-05-25 13:16 | Progress Note ---
Internal Med Progress Note Date of Service: May 25, 2016. Provider Documentation: SUBJECTIVE: Patient is feeling better. B/L leg swelling has almost resolved. Denies any chest pain since admission, no SOB. Cough with sputum- improving. No fever, chills, wheezing, OBJECTIVE: Vital Signs-as noted below Exam: General-AAOX3, no distress Neck-Supple, NO JVD Lungs-AEBE decreased, no wheezing, crackles Heart-S1, S2 normal, no murmurs Extremities-B/l lower extremity edema almost resolved Lab data as noted below. Diagnostic Radiology BILAT LE US IMPRESSION: 1. No evidence of deep venous thrombus within the bilateral lower extremities. 2. Suspected bilateral popliteal cysts, as described above CXR IMPRESSION: Cardiomegaly with no acute cardiopulmonary abnormality. EKG EKG: NSR at 78 bpm with mod LVH and no acute ischemic changes noted; ASSESSMENT & PLAN: Assessment and Plan : CHEST PAIN , ATYPICAL: Pt presented with chest pain assoc with exertional SOB prior to admission ( atypical ) ; no prior h/o cardiac problems . No episodes since admission. Unlikely cardiac, possibly musculoskeletal or related to recent bronchitis with coughing EKG - no acute changes, Trop x 2 negative; F/up Echo -Continue with ASA, BB -Cardiology consulted- recommends no further testing, unlikely cardiac etiology. BILATERAL LOWER EXTREMITY SWELLING/ELEVATED D-DIMER -D-dimer >450; No hypoxia, No tachycardia -bilat LE US negative for DVT -VQ scan- Indeterminate for PE -Hem./onc was consulted on admission for opinion due to ? VQ scan, however, seems unlikely it is PE clinically with negative US doppler and indeterminate VQ scan -Discontinue empiric IV Heparin INFLUENZA A -Came back positive for flu -Recently was treated for Bronchitis with steroids/Antibiotics. Took steroids only for few days and just 2 tabs of antibiotics left MANUEL ON CKD STAGE 4 - Resolving -Creatinine on admission 2.8 --> down to 2.3 (bl=2.1-2.3) -Hold lasix, hydralazine and losartan -Continue to monitor with daily prp and avoid nephrotoxic agents when able HYPOKALEMIA K 3.1 -Replace -Monitor K, Mg CONSTIPATION -Last BM 3 days ago - bowel regimen H/O DIASTOLIC CHF -1+ lower extremity edema; CXR no effusions -Hold Lasix for MANUEL -Continue BB -continue to monitor with I&Os and daily weights INSULIN-DEPENDENT DM 2 -recent A1C 8.5 -hold NovoLog -cont Lantus -monitor BSG AC HS HYPOTHYROIDISM -cont levothyroxine GERD -cont ranitidine HTN -BP now stable -cont Norvasc and metoprolol -hold losartan and hydralazine due to MANUEL -monitor DYSLIPIDEMIA -cont statin DVT PROPHYLAXIS -subq heparin CODE STATUS -FULL CODE per discussion with patient upon admission DISPO Observation status Probable discharge in AM Vital Signs: Date Time Temp Pulse Resp B/P Pulse Ox O2 Delivery O2 Flow Rate FiO2 05/25/16 11:34 37.0 55 20 145/68 94 05/25/16 09:23 63 05/25/16 08:00 92 Room Air 05/25/16 07:44 36.8 48 16 158/76 92 Room Air 05/25/16 04:54 36.4 58 20 146/63 91 Room Air 05/25/16 04:00 96 Room Air 05/25/16 00:14 36.8 57 18 159/76 96 Room Air 05/25/16 00:00 95 Room Air 05/24/16 20:22 36.9 51 20 166/78 93 Room Air 05/24/16 20:00 95 Room Air 05/24/16 16:00 95 Room Air 05/24/16 14:43 95 Room Air 05/24/16 14:24 36.7 60 18 202/75 95 Room Air 187/78 Lab Results: Results Past 24 Hours Test 05/24/16 14:41 05/24/16 16:05 05/24/16 18:00 05/24/16 19:23 Range/Units Creatine Kinase MB 0.7 1.1 0.5-3.6 ng/ml Troponin I < 0.015 < 0.015 0-0.045 ng/ml Bedside Glucose 334 70-90 mg/dl Influenza Type A (RT-PCR) POS for Influ A NEG Influenza Type B (RT-PCR) Neg for Influ B NEG Creatine Kinase MB Ratio 0-3.0 Test 05/24/16 20:27 05/24/16 23:43 05/25/16 05:08 05/25/16 06:58 Range/Units Bedside Glucose 142 105 70-90 mg/dl Activated Partial Thromboplast Time 64.1 21.0-31.0 SECONDS Partial Thromboplastin Ratio 2.5 White Blood Count 5.14 4.8-10.8 K/uL Red Blood Count 3.86 4.2-5.4 M/uL Hemoglobin 10.7 12.0-16.0 g/dL Hematocrit 32.6 37-47 % Mean Corpuscular Volume 84.5 80-100 fL Mean Corpuscular Hemoglobin 27.7 25-34 pg Mean Corpuscular Hemoglobin Concent 32.8 32-36 g/dl RDW Standard Deviation 45.5 36.4-46.3 fL RDW Coefficient of Variation 14.7 11.5-14.5 % Platelet Count 214 130-400 K/uL Mean Platelet Volume 11.8 7.4-10.4 fL Sodium Level 138 136-145 mmol/L Potassium Level 3.1 3.5-5.1 mmol/L Chloride Level 101 98-107 mmol/L Carbon Dioxide Level 27 21-32 mmol/L Anion Gap 10.0 3-11 mmol/L Blood Urea Nitrogen 28 7-18 mg/dl Creatinine 2.50 0.60-1.20 mg/dl Est Creatinine Clear Calc Drug Dose 23.4 ml/min Estimated GFR () 20.9 Estimated GFR (Non- 18.1 BUN/Creatinine Ratio 11.1 10-20 Random Glucose 95 70-99 mg/dl Estimated Average Glucose 232 mg/dl Hemoglobin A1c 9.7 4.5-5.6 % Calcium Level 9.0 8.5-10.1 mg/dl Test 05/25/16 08:10 05/25/16 11:51 Range/Units Activated Partial Thromboplast Time 71.8 21.0-31.0 SECONDS Partial Thromboplastin Ratio 2.8 Bedside Glucose 143 70-90 mg/dl
[2016-05-25] MEDS ORDERED: POTASSIUM CHLORIDE 10 MEQ TABCR PO STA (13:18)
[2016-05-25] MEDS: HEPARIN SOD 5000 UNIT/0.5 ML CARP SQ SCH ×2 (13:52→21:12)
--- NOTE | 2016-05-25 16:25 | ECHOCARDIOGRAM REPORT ---
*NOTICE TO RECEIVING [employer] This information is strictly Confidential and protected under [place] law. [place] law prohibits you from making any further disclosure of this information unless further disclosure is expressly permitted by the written consent of the person to whom it pertains or is authorized by law. A general authorization for the release of medical or other information is not sufficient for this purpose. Hospital accepts no responsibility if the information is made available to any other person, INCLUDING THE PATIENT. Interpretation Summary * Name: MILI SAHU Study Date: 05/25/2016 03:12 PM BP: 145/78 mmHg * Patient Location: [facility]\S\N289\S\2 HR: 71 * : 1940 (M/d/yyyy) Gender: Female Height: 66 in * Age: 75 yrs Ethnicity: [place] Weight: 231 lb * Ordering Physician: Vanessa Abdullahi * Referring Physician: Self, Referred * Performed By: Estela Montero RCS * * Reason For Study: Chest Pain * BSA: 2.1 m2 * -- Conclusions -- * Normal LV chamber size and wall thickness. * Normal LV systolic function, EF 60-65%. * No segmental left ventricular wall motion abnormalities are noted. * Grade I diastolic dysfunction. * Aortic valve sclerosis moderate, without significant aortic valvular stenosis. * The mitral valve leaflets appear thickened, but open well. * There is mild mitral annular calcification. There is no mitral regurgitation noted. There is no mitral valve stenosis. * Mild left atrial enlargement. Procedure Details * A complete two-dimensional transthoracic echocardiogram was performed (2D, M-mode, Doppler and color flow Doppler). Left Ventricle * The left ventricle is normal in size. * There is normal left ventricular wall thickness. * Left ventricular systolic function is normal. * No segmental left ventricular wall motion abnormalities are noted. * Ejection Fraction = 60-65%. * The left ventricular wall motion is normal at rest. Right Ventricle * The right ventricular cavity size is normal (basal dimension <4.2 cm in right ventricular apical 4-chamber view). * The right ventricular systolic function is normal as assessed by tricuspid annular plane systolic excursion (TAPSE) (normal >1.5 cm). Atria * The left atrium is mildly dilated. * Right atrial size is normal. * No ASD detected; PFO is not assessed. Mitral Valve * The mitral valve leaflets appear thickened, but open well. * There is mild mitral annular calcification. * There is no mitral valve stenosis. * There is no mitral regurgitation noted. Tricuspid Valve * The tricuspid valve is normal in structure and function. Aortic Valve * The aortic valve is trileaflet. * Aortic valve sclerosis moderate, without significant aortic valvular stenosis. * There is no significant aortic regurgitation. Pulmonic Valve * The pulmonary valve is not well seen, but the Doppler examination is normal without significant regurgitation or stenosis. Great Vessels * The aortic root is normal size. Pericardium/Pleural * There is no pericardial effusion. Left Ventricular Diastolic Function * Grade I diastolic dysfunction, (abnormal relaxation pattern). MMode 2D Measurements and Calculations IVSd 0.99 cm IVSs 1.4 cm LVIDd 5.8 cm LVIDs 3.7 cm LVPWd 1.0 cm LVPWs 1.4 cm IVS/LVPW 0.99 FS 37.0 % EDV(Teich) 168.9 ml ESV(Teich) 57.4 ml EF(Teich) 66.1 % EDV(cubed) 198.8 ml ESV(cubed) 49.8 ml EF(cubed) 74.9 % % IVS thick 42.4 % % LVPW thick 40.7 % LV mass(C)d 235.6 grams LV mass(C)dI 110.8 grams/m\S\2 LV mass(C)s 188.8 grams LV mass(C)sI 88.8 grams/m\S\2 CO(Teich) 6.2 l/min CI(Teich) 2.9 l/min/m\S\2 SV(Teich) 111.6 ml SI(Teich) 52.5 ml/m\S\2 CO(cubed) 8.3 l/min CI(cubed) 3.9 l/min/m\S\2 SV(cubed) 149.0 ml SI(cubed) 70.0 ml/m\S\2 Ao root diam 3.7 cm Ao root area 10.9 cm\S\2 ACS 1.9 cm LA dimension 4.7 cm LA/Ao 1.3 LVAd ap4 32.4 cm\S\2 LVLd ap4 8.6 cm EDV(MOD-sp4) 98.0 ml LVAs ap4 17.6 cm\S\2 LVLs ap4 7.2 cm ESV(MOD-sp4) 35.0 ml EF(MOD-sp4) 64.3 % LVAd ap2 26.7 cm\S\2 LVLd ap2 8.2 cm EDV(MOD-sp2) 73.0 ml LVAs ap2 16.2 cm\S\2 LVLs ap2 7.0 cm ESV(MOD-sp2) 32.0 ml EF(MOD-sp2) 56.2 % CO(MOD-sp4) 3.5 l/min CI(MOD-sp4) 1.7 l/min/m\S\2 SV(MOD-sp4) 63.0 ml SI(MOD-sp4) 29.6 ml/m\S\2 CO(MOD-sp2) 2.3 l/min CI(MOD-sp2) 1.1 l/min/m\S\2 SV(MOD-sp2) 41.0 ml SI(MOD-sp2) 19.3 ml/m\S\2 Doppler Measurements and Calculations MV E max kristi 90.7 cm/sec MV A max kristi 130.8 cm/sec MV E/A 0.69 MV P1/2t max kristi 98.3 cm/sec MV P1/2t 136.9 msec MVA(P1/2t) 1.6 cm\S\2 MV dec slope 210.3 cm/sec\S\2 MV dec time 0.39 sec Ao V2 max 175.5 cm/sec Ao max PG 12.3 mmHg Ao max PG (full) 7.7 mmHg LV V1 max PG 4.6 mmHg LV V1 max 107.4 cm/sec PA V2 max 103.8 cm/sec PA max PG 4.3 mmHg PI max kristi 213.0 cm/sec PI max PG 18.2 mmHg PI dec slope 202.0 cm/sec\S\2 PI P1/2t 308.8 msec TR max kristi 248.0 cm/sec
[2016-05-25 16:27] LABS: PARTIAL THROMBOPLASTIN RATIO 1.2
[2016-05-25] MEDS ORDERED: INSULIN GLARGINE SOLOSTAR 100 UNITS/ML 3 ML PEN SC SCH (21:00)
[2016-05-26] VITALS: O2SAT 92
[2016-05-26 04:00] VITALS: BP 189/78; PULSE 53; TEMP 36.4; O2SAT 91
[2016-05-26 04:23] VITALS: BP 138/55; PULSE 53; TEMP 36.6; O2SAT 91
[2016-05-26] MEDS: LEVOTHYROXINE 100 MCG TAB PO SCH (05:35)
[2016-05-26] MEDS: HEPARIN SOD 5000 UNIT/0.5 ML CARP SQ SCH (05:39)
[2016-05-26 05:58] LABS: HEMATOCRIT 32.4 % (37-47); MEAN CORPUSCULAR HEMOGLOBIN 27.8 pg (25-34); MEAN CORPUSCULAR HGB CONC 32.7 g/dl (32-36); MEAN PLATELET VOLUME 11.8 fL (7.4-10.4); PLATELET COUNT 206 K/uL (130-400); RED BLOOD COUNT 3.81 M/uL (4.2-5.4); WHITE BLOOD COUNT 4.79 K/uL (4.8-10.8)
[2016-05-26 06:12] LABS: PARTIAL THROMBOPLASTIN RATIO 1.2
[2016-05-26] MEDS: INSULIN ASPART 100 UNITS/ML 3 ML PEN SC SCH ×2 (06:30→12:12)
[2016-05-26 06:33] LABS: CREATININE 2.5 mg/dl (0.60-1.20); MAGNESIUM 2.4 mg/dl (1.8-2.4); POTASSIUM 3.3 mmol/L (3.5-5.1)
[2016-05-26 07:12] VITALS: BP 162/68; PULSE 58; TEMP 36.7; O2SAT 92
[2016-05-26] MEDS ORDERED: POTASSIUM CHLORIDE 10 MEQ TABCR PO STA (07:56)
[2016-05-26] MEDS: POLYETHYLENE (MIRALAX) 17 GM PACK PO SCH (08:01)
[2016-05-26] MEDS: AMLODIPINE BESYLATE 5 MG TAB PO SCH (08:02)
[2016-05-26] MEDS: RANITIDINE HCL 150 MG TAB PO SCH (08:02)
[2016-05-26] MEDS: MAGNESIUM OXIDE 400 MG TAB PO SCH (08:02)
[2016-05-26] MEDS: METOPROLOL TARTRATE 100 MG TAB PO SCH (08:02)
[2016-05-26] MEDS: DOCUSATE SODIUM 100 MG CAP PO SCH (08:02)
[2016-05-26] MEDS ORDERED: OSELTAMIVIR PHOSPHATE SUSP 30 MG/5 ML UDP PO SCH (09:00)
[2016-05-26] MEDS ORDERED: ASPIRIN 325 MG ECTAB PO SCH (09:00)
--- NOTE | 2016-05-26 09:53 | Progress Note ---
Internal Med Progress Note Date of Service: May 26, 2016. Provider Documentation: SUBJECTIVE : Patient is feeling better. B/L leg swelling has almost resolved. Denies any chest pain since admission, no SOB. Cough with sputum -Improved. No fever, chills, wheezing. OBJECTIVE: Vital Signs-as noted below Exam: General-AAOX3, no distress Neck-Supple, NO JVD Lungs-AEBE decreased, coarse BS, no wheezing, crackles Heart-S1, S2 normal, no murmurs Extremities-B/l lower extremity edema almost resolved Lab data as noted below. Diagnostic Radiology BILAT LE US IMPRESSION: 1. No evidence of deep venous thrombus within the bilateral lower extremities. 2. Suspected bilateral popliteal cysts, as described above CXR IMPRESSION: Cardiomegaly with no acute cardiopulmonary abnormality. EKG EKG: NSR at 78 bpm with mod LVH and no acute ischemic changes noted; ASSESSMENT & PLAN: Assessment and Plan : CHEST PAIN, ATYPICAL: Resolved Pt presented with chest pain, atypical, associated with exertional SOB prior to admission ; no prior h/o cardiac problems . No episodes since admission. Unlikely cardiac, possibly musculoskeletal or related to recent bronchitis with coughing EKG - no acute changes, Trop x 2 negative; Echo- EF 60-65%, Gd I diastolic dysfunction, No wall motion abnormalities -Continue with ASA, BB -Cardiology consulted- recommends no further testing, unlikely cardiac etiology. BILATERAL LOWER EXTREMITY SWELLING/ELEVATED D-DIMER - Improved -D-dimer >450; No hypoxia, No tachycardia -Bilat LE US negative for DVT -VQ scan- Indeterminate for PE -Hem./onc was consulted on admission for opinion due to ? VQ scan, however, seems unlikely it is PE -clinically with negative US doppler and indeterminate VQ scan -Discontinued empiric IV Heparin INFLUENZA A -Came back positive for flu -Recently was treated for Bronchitis with steroids/Antibiotics. Took steroids only for few days and just 2 tabs of antibiotics left -Perla flu 30 mg started on 05/25/16 (Day 25) MANUEL ON CKD STAGE 4 - Resolving -Creatinine on admission 2.8 --> down to 2.5 (bl=2.1-2.3) -Held lasix, Losartan on admission. Restart lasix 80 mg bid (home dose), continue to hold losartan. -Monitor creatinine closely outpatient HYPOKALEMIA -Replace today -Monitor K, Mg CONSTIPATION -Last BM 3 days ago - bowel regimen H/O DIASTOLIC CHF -1+ lower extremity edema; CXR no effusions -Held Lasix for MANUEL , creatinine improved--> restart lasix at 80 mg PO BID ( Home dose) -Continue BB -Monitor INSULIN-DEPENDENT DM 2 -recent A1C 8.5 -hold NovoLog -cont Lantus -monitor BSG AC HS HYPOTHYROIDISM -cont levothyroxine GERD -cont ranitidine HTN -BP slightly up -cont Norvasc and metoprolol , hydralazine -Lasix restarted today -hold losartan due to MANUEL -monitor DYSLIPIDEMIA -Cont statin DVT PROPHYLAXIS -SQ heparin CODE STATUS -FULL CODE per discussion with patient upon admission DISPO Discharge today evening. Vital Signs: Date Time Temp Pulse Resp B/P Pulse Ox O2 Delivery O2 Flow Rate FiO2 05/26/16 08:00 Room Air 05/26/16 07:12 36.7 58 20 162/68 92 05/26/16 04:23 36.6 53 18 138/55 91 Room Air 05/26/16 04:00 36.4 53 20 189/78 91 Room Air 05/26/16 04:00 91 Room Air 05/26/16 00:00 92 Room Air 05/25/16 23:39 36.8 52 18 145/58 92 Room Air 05/25/16 20:18 36.6 54 18 144/69 95 Room Air 05/25/16 20:00 Room Air 05/25/16 16:12 36.5 57 18 168/72 92 Room Air 05/25/16 16:00 Room Air 05/25/16 12:00 Room Air 05/25/16 11:34 37.0 55 20 145/68 94 Lab Results: Results Past 24 Hours Test 05/25/16 11:51 05/25/16 15:30 05/25/16 16:27 05/25/16 20:19 Range/Units Bedside Glucose 143 112 198 70-90 mg/dl Activated Partial Thromboplast Time 32.3 21.0-31.0 SECONDS Partial Thromboplastin Ratio 1.2 Test 05/26/16 05:23 05/26/16 07:22 Range/Units White Blood Count 4.79 4.8-10.8 K/uL Red Blood Count 3.81 4.2-5.4 M/uL Hemoglobin 10.6 12.0-16.0 g/dL Hematocrit 32.4 37-47 % Mean Corpuscular Volume 85.0 80-100 fL Mean Corpuscular Hemoglobin 27.8 25-34 pg Mean Corpuscular Hemoglobin Concent 32.7 32-36 g/dl RDW Standard Deviation 45.4 36.4-46.3 fL RDW Coefficient of Variation 14.6 11.5-14.5 % Platelet Count 206 130-400 K/uL Mean Platelet Volume 11.8 7.4-10.4 fL Activated Partial Thromboplast Time 32.4 21.0-31.0 SECONDS Partial Thromboplastin Ratio 1.2 Sodium Level 136 136-145 mmol/L Potassium Level 3.3 3.5-5.1 mmol/L Chloride Level 100 98-107 mmol/L Carbon Dioxide Level 26 21-32 mmol/L Anion Gap 10.0 3-11 mmol/L Blood Urea Nitrogen 27 7-18 mg/dl Creatinine 2.50 0.60-1.20 mg/dl Est Creatinine Clear Calc Drug Dose 23.3 ml/min Estimated GFR () 20.9 Estimated GFR (Non- 18.1 BUN/Creatinine Ratio 11.0 10-20 Random Glucose 115 70-99 mg/dl Calcium Level 9.0 8.5-10.1 mg/dl Magnesium Level 2.4 1.8-2.4 mg/dl Bedside Glucose 128 70-90 mg/dl
[2016-05-26] MEDS ORDERED: POTA10CA28 PO ×2 (09:56→13:18)
[2016-05-26] MEDS ORDERED: TMFUDL30 PO ×2 (09:56→13:18)
--- NOTE | 2016-05-26 09:59 | Discharge Instructions ---
Discharge Instructions Admission Reason for Admission: [place], Chest Pain Discharge Discharge Diagnosis / Problem: 1. Influenza A 2. Acute kidney injury on Chronic kidney disease Discharge Goals Goal(s): Diagnostic testing, Therapeutic intervention Activity Recommendations Activity Limitations: resume your previous activity . Instructions / Follow-Up Instructions / Follow-Up MEDICATION CHANGES: 1. New medication: Tamiflu 30 mg daily for 3 more days to complete 5 day course of Influenza 2. New medication: Kdur 20 meq daily while on lasix 3. Discontinued Losartan due to elevated creatinine. FOLLOW UP Dr Moyer in 1 week. Please call for appt date/time Current Hospital Diet Patient's current hospital diet: Diabetes Type 2 Diet, AHA Diet (Heart Healthy) , Low Sodium Diet (2gm Na) Discharge Diet Recommended Diet: AHA Diet (Heart Healthy), Low Sodium Diet (2gm Na), Diabetes Type 2 Diet Pending Studies Studies pending at discharge: no Laboratory Results Hemoglobin A1c Test 05/25/16 05:08 Range/Units Estimated Average Glucose 232 mg/dl Hemoglobin A1c 9.7 H 4.5-5.6 % Medical Emergencies . Who to Call and When: Medical Emergencies: If at any time you feel your situation is an emergency, please call 911 immediately. . Non-Emergent Contact Non-Emergency issues call your: Primary Care Provider . . "Provider Documentation" section prepared by Jamia Beltran. VTE Core Measure Inpt VTE Proph given/why not?: Unfractionated heparin SQ
--- NOTE | 2016-05-26 10:04 | Discharge Summary ---
Discharge Summary Admission Date: May 24, 2016 at 11:13 Discharge Date: May 26, 2016 Discharge Disposition: Home Principal Diagnosis: 1. Influenza A 2. Hx of recent bronchitis 3. MANUEL on CKD-III 4. Chest pain, atypical, acute [place] ruled out 5. Hypertension 6. Hypokalemia Secondary Diagnoses/Problems: 1. CHF, diastolic 2. Hypothyroidism 3. Dyslipidemia 4. GERD 5. IDDM Procedures: Tele monitoring CT chest CT abd/pelvis US duplex VQ scan CXR Consultations: Hem/Onc Cardiology Pending Studies/Follow-Up: Instructions / Follow-Up MEDICATION CHANGES: 1. New medication: Tamiflu 30 mg daily for 3 more days to complete 5 day course of Influenza 2. New medication: Kdur 20 meq daily while on lasix 3. Discontinued losartan due to elevated creatinine MONITOR BMP-Creatinine/Potassium to be followed up- during next office visit BP due to discontinuation of losartan FOLLOW UP Dr Moyer in 1 week. Please call for appt date/time Medication Reconciliation New Medications: Potassium Chloride (Micro-K Ext Rel) 10 Meq Capcr 20 MEQ PO DAILY, #30 CAP Oseltamivir Phosphate (Tamiflu) 6 Mg/Ml Sanjana 30 MG PO DAILY for 3 Days Continued Medications: Amlodipine (Norvasc) 10 Mg Tab 10 MG PO DAILY, TAB Aspirin (Aspirin Ec) 325 Mg Tab 325 MG PO Q2D Furosemide (Lasix) 80 Mg Tab 80 MG PO BID Hydralazine HCl (Hydralazine HCl) 100 Mg Tab 100 MG PO BID Insulin Aspart (Novolog) 100 Units/Ml Inj 28 UNITS SC TIDM Insulin Glargine (Lantus) 100 Unit/Ml Inj 50 UNITS SC HS Levothyroxine Sodium (Synthroid) 100 Mcg Tab 100 MCG PO DAILY, TAB Magnesium Oxide (Magnesium) 400 Mg Tab 400 MG PO DAILY Metoprolol Tartrate (Lopressor) (Lopressor) 100 Mg Tab 100 MG PO DAILY Ranitidine Hcl (Zantac) 150 Mg Tab 150 MG PO BID, TAB Discontinued Medications: Losartan Potassium (Cozaar) 100 Mg Tab 100 MG PO DAILY, TAB Admission Information HPI (per Admitting provider): This is a 75 y/o female with PMHx of CKD stage 4, Diastolic CHF on lasix, insulin-dependent DM 2, Hypothyroidism, HTN, Dyslipidemia and other problems as outlined below who presents to the ED c/o chest pain that began last night. Pt reports that last night she awoke from sleep with a dull central chest "heaviness" that did not radiate anywhere. The pain lasted approximately 2 hours before resolving completely. She does not know if her sxs were made worse with exertion. Sxs were assoc with exertional SOB and some lip numbness. She also noticed worsening LE edema bilaterally. She has never had chest pain like that before. Pt denies fever/chills, diaphoresis, palpitations, wheezing, abd pain, N/V, bladder issues, calf pain, slurred speech, facial droop, unilateral weakness, difficulty with swallowing or ambulation, lightheadedness/dizziness. In the ED, BP is elevated on arrival. Creat 2.8. d-dimer >450. Trop neg and EKG no acute ischemic changes. CXR no consolidation. Bilat LE US negative for DVT. Pt is currently chest pain free and will be admitted for further evaluation and treatment. Physical Exam (per Admitting): General Appearance: WD/WN, no apparent distress, + obese, + pertinent finding (Pt is sitting up in bed with daughters at bedside ) Head: normocephalic, atraumatic Eyes: normal inspection ENT: hearing grossly normal Neck: supple Respiratory/Chest: chest non-tender, no respiratory distress, + pertinent finding (rhonchi and mild wheezing) Cardiovascular: regular rate, rhythm, no edema, no murmur Abdomen/GI: normal bowel sounds, non tender, soft Back: normal inspection Extremities/Musculoskelatal: normal inspection, no calf tenderness, + swelling (1+ swelling bilat) Neurologic/Psych: lead inspector II-XII nml as tested, no motor/sensory deficits, alert , normal mood/affect, oriented x 3 Skin: normal color, warm/dry Hospital Course Assessment and Plan : CHEST PAIN, ATYPICAL: Resolved Pt presented with chest pain, atypical, associated with exertional SOB prior to admission ; no prior h/o cardiac problems . No episodes since admission. Unlikely cardiac, possibly musculoskeletal or related to recent bronchitis with coughing EKG - no acute changes, Trop x 2 negative; Echo- EF 60-65%, Gd I diastolic dysfunction, No wall motion abnormalities -Continue with ASA, BB -Cardiology consulted- recommends no further testing, unlikely cardiac etiology. BILATERAL LOWER EXTREMITY SWELLING/ELEVATED D-DIMER - Improved -D-dimer >450; No hypoxia, No tachycardia -Bilat LE US negative for DVT -VQ scan- Indeterminate for PE -Hem./onc was consulted on admission for opinion due to ? VQ scan, however, seems unlikely it is PE -clinically with negative US doppler and indeterminate VQ scan -Discontinued empiric IV Heparin INFLUENZA A -Came back positive for flu -Recently was treated for Bronchitis with steroids/Antibiotics. Took steroids only for few days and just 2 tabs of antibiotics left -Perla flu 30 mg started on 05/25/16 (Day 2) MANUEL ON CKD STAGE 4 - Resolving -Creatinine on admission 2.8 --> down to 2.5 (bl=2.1-2.3) -Held lasix, Losartan on admission. Restart lasix 80 mg bid (home dose), continue to hold losartan. -Monitor creatinine closely outpatient HYPOKALEMIA -Replace today -Monitor K, Mg CONSTIPATION -Last BM 3 days ago - bowel regimen H/O DIASTOLIC CHF -1+ lower extremity edema; CXR no effusions -Held Lasix for MANUEL , creatinine improved--> restart lasix at 80 mg PO BID ( Home dose) -Continue BB -Monitor INSULIN-DEPENDENT DM 2 -recent A1C 8.5 -hold NovoLog -cont Lantus -monitor BSG AC HS HYPOTHYROIDISM -cont levothyroxine GERD -cont ranitidine HTN -BP slightly up -cont Norvasc and metoprolol , hydralazine -Lasix restarted today -hold losartan due to MANUEL -monitor DYSLIPIDEMIA -Cont statin DVT PROPHYLAXIS -SQ heparin CODE STATUS -FULL CODE per discussion with patient upon admission DISPO Discharge today evening. Total time spent on discharge = 32 MINUTES This includes examination of the patient, discharge planning, medication reconciliation, and communication with other providers. Discharge Instructions Discharge Diagnosis / Problem: 1. Influenza A 2. Acute kidney injury on Chronic kidney disease Discharge Goals Goal(s): Diagnostic testing, Therapeutic intervention Activity Recommendations Activity Limitations: resume your previous activity . Instructions / Follow-Up Instructions / Follow-Up MEDICATION CHANGES: 1. New medication: Tamiflu 30 mg daily for 3 more days to complete 5 day course of Influenza FOLLOW UP Dr Moyer in 1 week. Please call for appt date/time Current Hospital Diet Patient's current hospital diet: Diabetes Type 2 Diet, AHA Diet (Heart Healthy) , Low Sodium Diet (2gm Na) Discharge Diet Recommended Diet: AHA Diet (Heart Healthy), Low Sodium Diet (2gm Na), Diabetes Type 2 Diet Pending Studies Studies pending at discharge: no Laboratory Results Hemoglobin A1c Test 05/25/16 05:08 Range/Units Estimated Average Glucose 232 mg/dl Hemoglobin A1c 9.7 H 4.5-5.6 % Medical Emergencies . Who to Call and When: Medical Emergencies: If at any time you feel your situation is an emergency, please call 911 immediately. . Non-Emergent Contact Non-Emergency issues call your: Primary Care Provider . . "Provider Documentation" section prepared by Jamia Beltran. VTE Core Measure Inpt VTE Proph given/why not?: Unfractionated heparin SQ
[2016-05-26 10:56] VITALS: BP 162/68; PULSE 58; TEMP 36.7; O2SAT 92
[2016-05-26] MEDS ORDERED: FUROSEMIDE 40 MG TAB PO SCH (17:00)
[2016-05-26] MEDS ORDERED: FUROSEMIDE 80 MG TAB PO SCH (17:00)
== END 2016-05-26 13:58 | disposition home or self-care (01) ==
LOC: ENRESERVDT → ENRESERVTM → C.EDB 06:31 → INTOOBSV 11:13 → C.MED 11:13 → UNDOADMIN 11:13 → EDBEDREQ 11:19
PROVIDERS: ADMIT Internal Medicine; ATTEND Internal Medicine
DX: J11.1 Influenza due to unidentified influenza virus with other respiratory manifestations (principal); E87.6 Hypokalemia; I12.9 Hypertensive chronic kidney disease with stage 1 through stage 4 chronic kidney disease, or unspecified chronic kidney disease; I50.32 Chronic diastolic (congestive) heart failure; N17.9 Acute kidney failure, unspecified; K59.00 Constipation, unspecified; N18.4 Chronic kidney disease, stage 4 (severe); E11.9 Type 2 diabetes mellitus without complications; E03.9 Hypothyroidism, unspecified; E78.5 Hyperlipidemia, unspecified; K21.9 Gastro-esophageal reflux disease without esophagitis; Z79.82 Long term (current) use of aspirin; Z79.899 Other long term (current) drug therapy; Z79.4 Long term (current) use of insulin